=== PATIENT | female | born 1950 | race Two or more races ===

== ENCOUNTER 2018-01-22 10:09 | Outpatient (CLI) | payer OTHER ==
[~2018-01-22 10:09] MED LIST: APRESOLINE 10MG10 MG; ASA325 MG; BISOPROLOL-HCT1 EAC1; BUCALSEP SPRAY30 ML MM; CEFTIN250 MG PO; CIPRO500 MG PO; NIFE60TA3 PO; NORVASC5 MG; VASOTEC20 M1; VISTARIL50 MG PO
== END 2018-01-22 10:14 | disposition home or self-care (01) ==
LOC: NUCLEAR 10:09
DX: I87.2 Venous insufficiency (chronic) (peripheral) (principal)

== ENCOUNTER 2018-04-29 14:03 | Emergency (ER) | payer OTHER ==
[~2018-04-29] VITALS: Ht 162.6 cm; Wt 72.6 kg
== END 2018-04-29 15:46 | disposition home or self-care (01) ==
LOC: ER 14:03
DX: S00.83XA Contusion of other part of head, initial encounter (principal); W18.09XA Striking against other object with subsequent fall, initial encounter; Y93.89 Activity, other specified; Y92.89 Other specified places as the place of occurrence of the external cause; Y99.8 Other external cause status

== ENCOUNTER 2018-05-06 12:23 | Outpatient (CLI) | payer OTHER | END 2018-05-06 12:33 | disposition home or self-care (01) | LOC: MAMO-SONO 12:23 | DX: Z12.31 Encounter for screening mammogram for malignant neoplasm of breast (principal); Z87.898 Personal history of other specified conditions; N60.11 Diffuse cystic mastopathy of right breast; N60.12 Diffuse cystic mastopathy of left breast; R10.2 Pelvic and perineal pain ==

== ENCOUNTER → 2018-07-31 | Emergency (ER) | payer OTHER | END | disposition left against medical advice (07) | LOC: ER 22:45 | DX: Z53.20 Procedure and treatment not carried out because of patient's decision for unspecified reasons (principal) ==

== ENCOUNTER 2018-08-25 19:10 | Emergency (ER) | payer OTHER ==
[~2018-08-25] VITALS: Ht 162.6 cm; Wt 73.5 kg
[2018-08-25] MEDS ORDERED: HYZAAR 50-12.51 EACH (19:18)
== END 2018-08-25 21:23 | disposition home or self-care (01) ==
LOC: ER 19:10
DX: B34.9 Viral infection, unspecified (principal); D72.828 Other elevated white blood cell count; R50.9 Fever, unspecified; J11.1 Influenza due to unidentified influenza virus with other respiratory manifestations

== ENCOUNTER 2018-10-22 22:06 | Emergency (ER) | payer OTHER ==
[~2018-10-22] VITALS: Ht 162.6 cm; Wt 72.6 kg
[~2018-10-22 22:06] MED LIST changes: +HYZAAR 50-12.51 EACH
== END 2018-10-23 02:49 | disposition home or self-care (01) ==
LOC: ER 22:06
DX: R07.89 Other chest pain (principal); R51 Headache

== ENCOUNTER 2019-09-01 06:49 | Emergency (ER) | payer OTHER ==
[~2019-09-01] VITALS: Ht 162.6 cm; Wt 68.9 kg
[2019-09-01] MEDS ORDERED: ASPIR 8181 MG PO (07:17)
== END 2019-09-01 17:33 | disposition home or self-care (01) ==
LOC: ER 06:49
DX: R07.89 Other chest pain (principal); I10 Essential (primary) hypertension

== ENCOUNTER 2020-05-03 10:46 | Emergency (ER) | payer OTHER ==
[~2020-05-03] VITALS: Ht 157.5 cm; Wt 72.6 kg
[~2020-05-03 10:46] MED LIST changes: +ASPIR 8181 MG PO
[2020-05-03] MEDS ORDERED: BUTALBIT-ACETA1 EACH PO (13:55)
[2020-05-03] MEDS ORDERED: CYCLOBENZAPRINE10 MG PO (14:13)
[2020-05-03] MEDS ORDERED: CELEBREX100 MG PO (14:13)
== END 2020-05-03 16:42 | disposition home or self-care (01) ==
LOC: ER 10:46
DX: G44.201 Tension-type headache, unspecified, intractable (principal); G89.11 Acute pain due to trauma

== ENCOUNTER 2020-10-26 02:43 | Emergency (ER) | payer OTHER ==
[~2020-10-26] VITALS: Ht 162.6 cm; Wt 74.4 kg
[~2020-10-26 02:43] MED LIST changes: +BUTALBIT-ACETA1 EACH PO; +CELEBREX100 MG PO; +CYCLOBENZAPRINE10 MG PO
[2020-10-26] MEDS ORDERED: HYDROCHLOROTHIA25 MG (03:00)
[2020-10-26] MEDS ORDERED: CRESTOR10 MG (03:00)
[2020-10-26] MEDS ORDERED: VISTARIL50 MG PO (04:55)
== END 2020-10-26 05:00 | disposition home or self-care (01) ==
LOC: ER 02:43
DX: I16.0 Hypertensive urgency (principal); I10 Essential (primary) hypertension; F41.8 Other specified anxiety disorders

== ENCOUNTER 2022-10-01 10:39 | Emergency (ER) | payer OTHER ==
[~2022-10-01] VITALS: Ht 160 cm; Wt 77.1 kg
[~2022-10-01 10:39] MED LIST changes: -BIDIL TABLET1 EACH; -ELIQUIS5 MG
[2022-10-01] MEDS ORDERED: ELIQUIS5 MG (11:01)
[2022-10-01] MEDS ORDERED: BIDIL TABLET1 EACH (11:02)
== END 2022-10-01 12:34 | disposition home or self-care (01) ==
LOC: ER 10:39
DX: M94.0 Chondrocostal junction syndrome [Tietze] (principal); Z88.8 Allergy status to other drugs, medicaments and biological substances

== ENCOUNTER → 2022-10-01 | Emergency (ER) | payer OTHER ==
[~2022-10-01] MED LIST changes: +BIDIL TABLET1 EACH; +CRESTOR10 MG; +ELIQUIS5 MG; +HYDROCHLOROTHIA25 MG
== END | disposition home or self-care (01) ==
LOC: ER 13:55
DX: M94.0 Chondrocostal junction syndrome [Tietze] (principal); R00.2 Palpitations; Z91.018 Allergy to other foods

== ENCOUNTER 2023-05-07 12:06 | Outpatient (CLI) | payer OTHER ==
[~2023-05-07 12:06] MED LIST changes: +BIDIL TABLET1 EACH; +ELIQUIS5 MG
== END 2023-05-07 12:19 | disposition home or self-care (01) ==
LOC: TOM 12:06
PROVIDERS: ATTEND Internal Medicine
DX: K57.00 Diverticulitis of small intestine with perforation and abscess without bleeding (principal); K57.30 Diverticulosis of large intestine without perforation or abscess without bleeding; R07.9 Chest pain, unspecified; I50.32 Chronic diastolic (congestive) heart failure; G62.9 Polyneuropathy, unspecified; E55.9 Vitamin D deficiency, unspecified

== ENCOUNTER 2023-08-08 09:47 | Emergency (ER) | payer OTHER ==
[~2023-08-08] VITALS: Ht 154.9 cm; Wt 74.4 kg
[2023-08-08 14:03] LABS: HEMATOCRIT 39.3 % (36.0-45.00); HEMOGLOBIN 13.3 g/dL (12.0-15.00); MEAN CELL VOLUME 87.6 fL (80.00-100.00); MEAN CORPUSCULAR HEMOGLOBIN 29.7 pg (27.00-32.0); MEAN CORPUSCULAR HGB CONC 33.9 g/dl (32.0-36.0); PLATELET COUNT 176 K/uL (150-450); RED BLOOD COUNT 4.49 M/uL (4.00-6.00); RED CELL DISTRIBUTION WIDTH 14.7 % (11.5-14.5)
== END 2023-08-08 15:52 | disposition home or self-care (01) ==
LOC: ER 09:48
PROVIDERS: Emergency Medicine
DX: R53.81 Other malaise (principal); R05.9 Cough, unspecified; Z20.822 Contact with and (suspected) exposure to COVID-19; Z91.018 Allergy to other foods
CPT/HCPCS: 36415; 71046; 94640; 96365; 99283; J2930

== ENCOUNTER 2023-10-22 13:38 | Outpatient (CLI) | payer OTHER | END 2023-10-22 14:39 | disposition home or self-care (01) | LOC: RAD 13:38 | PROVIDERS: ATTEND Physical Medicine & Rehabilitation | DX: M25.551 Pain in right hip (principal); M19.90 Unspecified osteoarthritis, unspecified site ==